=== PATIENT | male | born 1940 | race Caucasian/White ===

== ENCOUNTER 2019-11-26 21:06 | Emergency (ER) | payer MEDICARE, MEDICAID ==
[~2019-11-26] VITALS: Ht 165.1 cm; Wt 70.8 kg
[2019-11-26 21:26] VITALS: BP_SYST 151
--- NOTE | 2019-11-26 21:34 | NUR ---
Pt placed to ER waiting room in stable condition.
--- NOTE | 2019-11-26 23:20 | NUR ---
Pt fell onto left wrist after slipping while attempting to open a box. Bruising noted to medial wrist, no obvious deformity. Pt able move LHA and wiggle fingers without difficulty.
--- NOTE | 2019-11-26 23:20 | NUR ---
Patient to ER bed CHAIR 1 to gown for evaluation.
--- NOTE | 2019-11-26 23:24 | NUR ---
ER at bedside examining patient.
--- NOTE | 2019-11-26 23:27 | NUR ---
[facility] in [facility] - 11/26/19 at [address] Maurer assessing pt.
[2019-11-26] MEDS: ACETAMINOPHEN 325 MG TABLET PO ONE (23:45)
[2019-11-26 23:55] VITALS: BP_SYST 128
--- NOTE | 2019-11-26 23:55 | NUR ---
Patient given written and verbal discharge instructions and verbalizes understanding. ER MD discussed with patient the results and treatment provided. Patient in stable condition. ID arm band removed. Patient educated on pain management and to follow up with PMD. Pain Scale 4/10, medicated prior to discharge. Opportunity for questions provided and answered. Medication side effect fact sheet provided.
== END 2019-11-27 03:46 | disposition home or self-care (01) ==
LOC: SED 21:06
DX: S63.502A Unspecified sprain of left wrist, initial encounter (principal); W18.39XA Other fall on same level, initial encounter; Y93.89 Activity, other specified; Y92.89 Other specified places as the place of occurrence of the external cause; Y99.8 Other external cause status
CPT/HCPCS: 99283